=== PATIENT | male | born 1985 | race Caucasian/White ===

== ENCOUNTER 2021-12-09 21:34 | Emergency (ER) | payer BC ==
[~2021-12-09] VITALS: Ht 190.5 cm; Wt 86.2 kg
--- NOTE | 2021-12-09 22:08 | NUR ---
Note linnmariya in ED - 12/10/21 at 0248 by [email or web address] Patient brought in complaining of nausea, dizziness, and headache x 2 days. Patient reports he was on a cruise on Wednesday when he went to the bathroom and passed out. Reports he doesn't know what happened but girlfriend told him he was out for 10 mins, when patient woke up he had a laceration to back of head. Patient was [place] on cruise ship and given 7 bobby. Patient reports since then has been having increased nausea, dizziness and headache. Pain 10/26
[2021-12-09 22:18] VITALS: BP_SYST 120
--- NOTE | 2021-12-09 22:18 | NUR ---
Patient triaged and placed in waiting room. VSS and patient appears in no acute distress at this time. Accompanied by mother, awaiting available bed, and MD notified of need for MSE.
--- NOTE | 2021-12-09 22:22 | NUR ---
Patient brought in complaining of nausea, dizziness, and headache x 2 days. Patient reports he was on a cruise on Wednesday when he went to the bathroom and passed out. Reports he doesn't know what happened but girlfriend told him he was out for 10 mins, when patient woke up he had a laceration to back of head. Patient was [place] on cruise ship and given 7 bobby. Patient reports since then has been having increased nausea, dizziness and headache. Pain 10/26
--- NOTE | 2021-12-09 23:06 | NUR ---
ER Dr. Perez in triage examining patient.
[2021-12-09] MEDS: ONDANSETRON 4 MG ODT TAB PO ONE (23:31)
[2021-12-09 23:42] LABS: BASOPHILS # (AUTO) 0.1 K/uL (0.0-0.2); BASOPHILS % (AUTO) 0.8 % (0.0-2.0); EOSINOPHILS # (AUTO) 0.6 K/uL (0.0-0.4); EOSINOPHILS % (AUTO) 8.7 % (0.0-4.0); HEMATOCRIT 44.1 % (36-54); HEMOGLOBIN 15.1 g/dL (14.0-18.0); LYMPHOCYTES # (AUTO) 2.1 K/uL (1.0-5.5); MEAN CORPUSCULAR HEMOGLOBIN 31 pg (27-31); MEAN CORPUSCULAR HGB CONC 34 % (32-36); MEAN CORPUSCULAR VOLUME 91 fL (79.0-98.0); MONOCYTES # (AUTO) 0.5 K/uL (0.0-1.0); MONOCYTES % (AUTO) 6.7 % (1.7-9.3); NEUTROPHILS # (AUTO) 3.7 K/uL (1.8-7.7); NEUTROPHILS % (AUTO) 53.8 % (40.0-70.0); PLATELET COUNT (AUTO) 177 K/uL (130-430); RED BLOOD CELL COUNT(AUTO) 4.86 MIL/uL (4.2-6.2); RED CELL DISTRIBUTION WIDTH 13.7 % (9.0-15.0); WHITE BLOOD COUNT (AUTO) 6.9 K/uL (4.8-10.8)
[2021-12-09 23:56] LABS: CALCIUM 8.8 mg/dL (8.4-11.0); CREATININE 0.92 mg/dL (0.55-1.30); POTASSIUM 3.7 mmol/L (3.5-5.1)
[2021-12-09 23:57] LABS: BARBITURATE, URINE NEGATIVE (NEG <=200); BENZODIAZEPINE, URINE NEGATIVE (NEG <=150); CANNABINOID, URINE NEGATIVE (NEG <=50); COCAINE, URINE POSITIVE (NEG <=150); METHAMPHETAMINES SCREEN,URINE NEGATIVE (NEG <=500); OPIATE, URINE NEGATIVE (NEG <=100); PHENCYCLIDINE SCREEN,URINE NEGATIVE (NEG <=25); UR TRICYCLIC ANTIDEPRESSANTS NEGATIVE (NEG <=300); URINE AMPHETAMINE NEGATIVE (NEG <=500); URINE METHADONE NEGATIVE (NEG <=200); URINE OXYCODONE SCREEN NEGATIVE (NEG <=100); URINE PROPOXYPHENE SCREEN NEGATIVE (NEG <=300)
[2021-12-10 00:02] LABS: ALBUMIN 4.1 g/dL (3.4-4.8); TOTAL BILIRUBIN 0.6 mg/dL (0.0-1.0)
--- NOTE | 2021-12-10 00:32 | NUR ---
patient sitting in waiting room with mother. no acute distress noted at this time.
[2021-12-10 01:02] VITALS: BP_SYST 112
--- NOTE | 2021-12-10 01:02 | NUR ---
Patient given verbal discharge instructions and verbalizes understanding. ER MD discussed with patient the results and treatment provided. Patient in stable condition. ID arm band removed. Rx of zofran given. Patient educated on pain management and to follow up with PMD. Pain Scale 0/10 Opportunity for questions provided and answered. Medication side effect fact sheet provided.
[2021-12-10] MEDS ORDERED: ONDA-8 TL (01:34)
[2021-12-10] MEDS ORDERED: ACETAMINOPHEN 500 MG TABLET ONE (02:35)
[2021-12-10] MEDS ORDERED: LIDOCAINE PATCH 5% 1 EA TP ONE (02:37)
== END 2021-12-10 01:02 | disposition home or self-care (01) ==
LOC: SED 21:34
DX: S01.01XA Laceration without foreign body of scalp, initial encounter (principal); S09.90XA Unspecified injury of head, initial encounter; Z79.899 Other long term (current) drug therapy; W18.39XA Other fall on same level, initial encounter; Y93.89 Activity, other specified; Y92.89 Other specified places as the place of occurrence of the external cause; Y99.8 Other external cause status
CPT/HCPCS: 36415; 70450; 76376; 80053; 80307; 83690; 85025; 99284; Q0162